=== PATIENT | female | born 1975 | race Two or more races ===

== ENCOUNTER 2018-07-02 11:00 | Day surgery (SDC) | payer OTHER | END 2018-07-02 14:30 | disposition home or self-care (01) | LOC: AMB-ENDOS 11:00 | DX: R19.4 Change in bowel habit (principal); R93.5 Abnormal findings on diagnostic imaging of other abdominal regions, including retroperitoneum; K64.8 Other hemorrhoids ==

== ENCOUNTER 2018-07-24 07:15 | Inpatient (IN) | payer OTHER ==
[~2018-07-24] VITALS: Ht 157.5 cm; Wt 88.5 kg
[2018-08-14] MEDS ORDERED: ATIVAN2 MG PO (10:15)
[2018-08-14] MEDS ORDERED: NEURONTIN300 MG PO (10:16)
[2018-08-14] MEDS ORDERED: INDERAL LA80 MG PO (10:16)
[2018-08-14] MEDS ORDERED: PLAQUENIL PO (10:17)
[2018-08-14] MEDS ORDERED: CYMBALTA30 MG PO (10:17)
[2018-08-23] MEDS ORDERED: ULTRAM50 MG PO (10:16)
[2018-08-23] MEDS ORDERED: DOCUSATE SODIU100 MG PO (10:16)
== END 2018-08-23 13:01 | disposition home or self-care (01) | DRG 743 ==
LOC: O/R 08-22 05:32 → SURH 08-22 07:00 → OB/GYN 08-22 15:35
PROVIDERS: Obstetrics & Gynecology; Surgery
PROC: 0UB54ZZ Excision of Right Fallopian Tube, Percutaneous Endoscopic Approach (ICD-10-PCS; 2018-08-22)
PROC: 0DNN4ZZ Release Sigmoid Colon, Percutaneous Endoscopic Approach (ICD-10-PCS; 2018-08-22)
PROC: 0UT64ZZ Resection of Left Fallopian Tube, Percutaneous Endoscopic Approach (ICD-10-PCS; principal; 2018-08-22 07:00)
PROC: 0UT14ZZ Resection of Left Ovary, Percutaneous Endoscopic Approach (ICD-10-PCS; 2018-08-22 07:00)
DX: N83.292 Other ovarian cyst, left side (principal); K66.0 Peritoneal adhesions (postprocedural) (postinfection)